=== PATIENT | female | born 1980 | race Caucasian/White ===

== ENCOUNTER → 2021-03-13 09:44 | Outpatient (CLI) | payer OTHER, SELFPAY ==
[2021-03-15 19:36] LABS: AFP Value 35.8 ng/mL (.); Gest Age on Col Date 16.4 weeks (.); Gestational Age Ultrasound (.); Insulin Dep Diabetes No (.); OSBR Risk 1IN 10000 (.); Results Report (.); Test Results *Screen Negative* (.)
== END ==
PROVIDERS: Referring Provider Obstetrics & Gynecology; Visit Provider Obstetrics & Gynecology
DX: O09.92 Supervision of high risk pregnancy, unspecified, second trimester (principal); Z3A.16 16 weeks gestation of pregnancy
CPT/HCPCS: 36415; 82105

== ENCOUNTER → 2021-04-05 15:40 | Outpatient (CLI) | payer OTHER, SELFPAY ==
--- NOTE | 2021-04-05 15:43 | DI.US.S_ITS ---
PROCEDURE: US OB >= 14 WEEKS FETUS INDICATIONS: 20 WEEK ANATOMY SCAN OUTSIDE/PRIOR DATING DATA: Last menstrual period (LMP): 11/18/2020. LMP-based estimated date of delivery (ANAND): 08/25/2021 . First dating scan (date and location): 04/05/2021 . Estimated date of delivery (ANAND) from first dating scan: 08/22/2021 . TECHNIQUE: Real-time scanning was performed of the fetus, with image documentation and biometric measurements. Endovaginal scanning: No COMPARISON: None. FINDINGS: General: A single living intrauterine gestation is present. Presentation: Transverse. Placenta: Placental position is anterior , without previa. Anterior uterine contraction versus fibroid measuring 2.6 x 2.1 x 1.6 cm. Amniotic fluid index: 14.1 cm, normal range is 5-24 cm. heart rate: 147 beats per minute. Maternal cervical canal: 5.0 cm long. Normal lower limit is 2.5 cm. biometrics: Biparietal diameter: 20 weeks Head circumference: 19 weeks 6 days Abdominal circumference: 20 weeks 3 days Femur length: 20 weeks Estimated gestational age from initial scan: not applicable. Composite gestational age from present scan: 20 weeks 1 day Estimated weight and percentile: 339 g, 74th percentile. Measurement variability for biometric dating: +/- 7 days from 14 weeks to 15 weeks 6 days gestation, +/- 10 days from 16 weeks to 21 weeks 6 days gestation, +/- 2 weeks from 22 weeks to 27 weeks 6 days gestation, +/- 3 weeks for 28 weeks gestation or later. weight reference: 4500 g or EFW >90/95% is considered macrosomia or large for gestational age. EFW <10% is small for gestational age. EFW 5% or less is considered intra-uterine growth restriction. Anatomic survey: Neuro: Ventricles are non-dilated at less than 10 mm. Cisterna magna is normal at 3-11 mm. Cerebellum is normal in size and morphology. Nuchal skin fold: Normal at less than 6 mm between 14-21 weeks gestational age. Face: Nose and lips, facial profile are normal. Spine: No evidence for spina bifida. Heart: 4-chambered heart is present, with normal ventricular outflow tracts. Diaphragm: Diaphragm is intact. Stomach: Left-sided stomach is present. Kidneys: No hydronephrosis. Normal is less than 5 mm in 2nd trimester, less than 7 mm in 3rd trimester. Cord: 3-vessel cord has orthotopic insertion. Bladder: Normal in size. Extremities: All 4 extremities identified. IMPRESSION: 1. 20 week 1 day single living IUP corresponding to ultrasound ANAND of 08/22/2021. 2. Normal anatomic survey. 3. Anterior myometrial contraction versus intramural fibroid measuring up to 2.6 cm. Dictated by: Dewayne CAICEDO Interpreted: Neil Oropeza MD on 04/05/2021 at 16:52 Transcribed by: LUCI on 04/05/2021 at 16:55 Approved by: Neil Oropeza M.D. on 04/05/2021 at 16:57
== END ==
PROVIDERS: Referring Provider Obstetrics & Gynecology; Visit Provider Obstetrics & Gynecology
DX: Z34.82 Encounter for supervision of other normal pregnancy, second trimester (principal); Z3A.20 20 weeks gestation of pregnancy
CPT/HCPCS: 76811

== ENCOUNTER → 2021-05-08 09:44 | Outpatient (CLI) | payer OTHER, SELFPAY ==
[2021-05-08 11:45] LABS: Hematocrit 33.5 % (36-46); Hemoglobin 11.4 g/dL (12.0-16.0)
[2021-05-08 12:02] LABS: GTT (PREG) 1 Hour PP 50gm Dose 120 mg/dL (76-139)
== END ==
PROVIDERS: Referring Provider Obstetrics & Gynecology; Visit Provider Obstetrics & Gynecology
DX: Z34.82 Encounter for supervision of other normal pregnancy, second trimester (principal); Z3A.25 25 weeks gestation of pregnancy
CPT/HCPCS: 36415; 82950; 85014; 85018

== ENCOUNTER → 2021-06-21 12:32 | Outpatient (CLI) | payer OTHER, SELFPAY ==
--- NOTE | 2021-06-21 12:33 | DI.US.S_ITS ---
PROCEDURE: US OB LIMITED INDICATIONS: GROWTH OUTSIDE/PRIOR DATING DATA: Last menstrual period (LMP): 11/18/2020. LMP-based estimated date of delivery (ANAND): 08/25/2021 . First dating scan (date and location): 04/05/2021 . Estimated date of delivery (ANAND) from first dating scan: 08/22/2021 . TECHNIQUE: Real-time scanning was performed of the fetus, with image documentation and biometric measurements. Endovaginal scanning: No COMPARISON: [facility], OB >= 14 WEEKS FETUS, 04/05/2021, 14:56. FINDINGS: General: A single living intrauterine gestation is present. Presentation: Vertex. Placenta: Placental position is anterior , without previa. Amniotic fluid index: 22.0 cm, normal range is 5-24 cm. heart rate: 130 beats per minute. Maternal cervical canal: 6.7 cm long. Normal lower limit is 2.5 cm. biometrics: Biparietal diameter: 32 weeks 3 days Head circumference: 32 weeks 5 days Abdominal circumference: 32 weeks 6 days Femur length: 31 weeks 3 days Estimated gestational age from initial scan: 31 weeks 1 day Composite gestational age from present scan: 32 weeks 3 days Estimated weight and percentile: 1956 g; 78th percentile Measurement variability for biometric dating: +/- 7 days from 14 weeks to 15 weeks 6 days gestation, +/- 10 days from 16 weeks to 21 weeks 6 days gestation, +/- 2 weeks from 22 weeks to 27 weeks 6 days gestation, +/- 3 weeks for 28 weeks gestation or later. weight reference: 4500 g or EFW >90/95% is considered macrosomia or large for gestational age. EFW <10% is small for gestational age. EFW 5% or less is considered intra-uterine growth restriction. Other: Not applicable. IMPRESSION: Single living IUP redemonstrated and interval growth is normal. Dictated by: Dewayne CAICEDO Interpreted: Shamir Flanagan MD on 06/21/2021 at 14:10 Transcribed by: HEMANTH on 06/21/2021 at 14:12 Approved by: Shamir Flanagan M.D. on 06/21/2021 at 17:30
== END ==
PROVIDERS: Referring Provider Obstetrics & Gynecology; Visit Provider Obstetrics & Gynecology
DX: O09.523 Supervision of elderly multigravida, third trimester (principal); Z3A.32 32 weeks gestation of pregnancy
CPT/HCPCS: 76815

== ENCOUNTER 2021-07-17 09:43 | Outpatient (CLI) | payer OTHER, SELFPAY ==
--- NOTE | 2021-07-17 10:40 | P.TNLD_ITS ---
Visit Information Visit Information Date of evaluation: 07/17/21 Primary OB Provider: Lawson Whitaker Reason for Evaluation: Yes non-stress test Comments/Additional reasons for admission: Advanced maternal age [facility] Medical History (Updated 06/21/21 @ 14:45 by Lawson Whitaker MD) Chicken pox (~1984) History of herpes genitalis (~2002) Family History Mother No problems noted. 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 ) substance use type: does not use during the past year weight has: remained stable well-balanced diet: daily or most days daily servings fruits/ve-4 caffeine: No Type(s) of exercise: normal ROM and activity ([place] lots of yard work, weeding. ) frequency: daily Evaluation Evaluation Baseline heart rate: 130 Variability: Moderate (11-25) monitor accelerations: Present Monitor Decelerations: Absent Category of Tracing: Reactive Status: Category l Comments: Reactive NST Diagnosis, Plan/Disposition Final Diagnosis (1) : Status: Acute (2) Advanced maternal age affecting , antepartum: Status: Acute Plan/Disposition Plan: Continue weekly NST's OB Disposition: home
== END 2021-07-17 10:45 | disposition home or self-care (01) ==
LOC: OB 07-23 03:45
PROVIDERS: Referring Provider Obstetrics & Gynecology; Visit Provider Obstetrics & Gynecology
DX: O09.523 Supervision of elderly multigravida, third trimester (principal); Z3A.34 34 weeks gestation of pregnancy
CPT/HCPCS: 59025; G0378; G0379

== ENCOUNTER 2021-07-24 10:01 | Outpatient (CLI) | payer OTHER, SELFPAY | END 2021-07-24 10:53 | disposition home or self-care (01) | LOC: OB 07-25 13:26 | PROVIDERS: Referring Provider Obstetrics & Gynecology; Visit Provider Obstetrics & Gynecology | DX: O09.523 Supervision of elderly multigravida, third trimester (principal); Z3A.35 35 weeks gestation of pregnancy | CPT/HCPCS: 59025; G0378; G0379 ==

== ENCOUNTER 2021-07-31 10:21 | Outpatient (CLI) | payer OTHER, SELFPAY | END 2021-07-31 11:00 | disposition home or self-care (01) | LOC: OB 08-02 14:03 | PROVIDERS: Referring Provider Obstetrics & Gynecology; Visit Provider Obstetrics & Gynecology | DX: O09.523 Supervision of elderly multigravida, third trimester (principal); Z3A.36 36 weeks gestation of pregnancy | CPT/HCPCS: 59025; 87653; G0378; G0379 ==

== ENCOUNTER → 2021-07-31 11:27 | Outpatient (CLI) | payer OTHER, SELFPAY ==
[2021-08-01 09:39] LABS: Strep Grp B PCR NEG for Grp B Strep
== END ==
PROVIDERS: Referring Provider Obstetrics & Gynecology; Visit Provider Obstetrics & Gynecology
DX: Z34.83 Encounter for supervision of other normal pregnancy, third trimester (principal); Z3A.36 36 weeks gestation of pregnancy
CPT/HCPCS: 87653

== ENCOUNTER 2021-08-07 09:39 | Outpatient (CLI) | payer OTHER, SELFPAY | END 2021-08-07 10:36 | disposition home or self-care (01) | LOC: LABOR 10:12 → OB 08-08 13:39 | PROVIDERS: Referring Provider Obstetrics & Gynecology; Visit Provider Obstetrics & Gynecology | DX: O09.523 Supervision of elderly multigravida, third trimester (principal); Z3A.37 37 weeks gestation of pregnancy | CPT/HCPCS: 59025; G0378; G0379 ==

== ENCOUNTER 2021-08-14 09:56 | Outpatient (CLI) | payer OTHER, SELFPAY | END 2021-08-14 10:35 | disposition home or self-care (01) | LOC: LABOR 10:42 → OB 08-19 09:17 | PROVIDERS: Referring Provider Obstetrics & Gynecology; Visit Provider Obstetrics & Gynecology | DX: O09.523 Supervision of elderly multigravida, third trimester (principal); O26.23 Pregnancy care for patient with recurrent pregnancy loss, third trimester; Z3A.38 38 weeks gestation of pregnancy | CPT/HCPCS: 59025; G0378; G0379 ==

== ENCOUNTER 2021-08-19 17:33 | Inpatient (IN) | payer OTHER, SELFPAY ==
[2021-08-19 19:23] LABS: COVID19 -Nasal RAPID Negative (Negative)
[2021-08-19] MEDS: miSOPROStoL 25 MCG TABLET 50 MCG PO (22:04)
[2021-08-19] MEDS: ACYCLOVIR 400 MG TABLET 800 MG PO (22:25)
[2021-08-19 22:26] LABS: Add Manual Diff / Slide Review NO; Basophils Absolute Auto 100 /uL (0-100); Basophils Percent Auto 0.8 % (0-2); Eosinophils Absolute Auto 0 /uL (0-450); Eosinophils Percent Auto 0.5 % (2-4); Hematocrit 37.5 % (36-46); Hemoglobin 12.6 g/dL (12.0-16.0); Lymphocytes Absolute Auto 2400 /uL (1100-4500); Lymphocytes Percent Auto 24.1 % (25-40); Mean Corpuscular HGB Conc 33.7 % (30-36); Mean Corpuscular Hemoglobin 31.1 PG (26-34); Mean Corpuscular Volume 92.3 fL (80-100); Monocytes Absolute Auto 700 /uL (0-900); Monocytes Percent Auto 7.3 % (3-14); Neutrophils Absolute Auto 6700 /uL (1500-7000); Neutrophils Percent Auto 67.3 % (50-75); Platelet Count 150 X10^3/uL (150-400); Red Blood Cell Count 4.06 X10^6/uL (4.0-5.2); Red Cell Distribution Width 14.4 % (11.6-14.8); White Blood Cell Count 9.9 X10^3/uL (4.5-11.0)
[2021-08-19 23:44] VITALS: BP 124/71
[2021-08-20] MEDS: miSOPROStoL 25 MCG TABLET 50 MCG PO ×2 (02:09→02:40)
[2021-08-20] MEDS: LACTATED RINGERS 1,000 ML 100 ML IV ×2 (07:57→09:00)
--- NOTE | 2021-08-20 07:59 | PM.OBHP.1 ---
OB HPI Date/Time Date of admission: 08/19/21 Date Patient Seen: 08/20/21 Time Patient Seen: 07:59 History of Present Condition Chief complaint: L&D : 4 Para: 1 Estimated Date of Delivery: 08/25/21 Estimated Gestational Age (weeks): 39+2 Narrative: Jailyn Chacko is a 41 year admitted now at 39+ 2 weeks gestational age for induction of labor due to advanced maternal age. course has been unremarkable. She has a remote history of HSV but no outbreaks currently and she's been on acyclovir prophylaxis since 36 weeks EGA. Indications Indication for induction OB: other (Advanced maternal age) History of Present care: good care Dating criteria: LMP confirmed by 1st trimester US Obstetrical complications: none Medical complications: none Preadmission Labs Blood type: A (+) positive -: Antibody screen: negative, GBS status: negative, HBsAG: negative, HIV: negative and RPR/VDLR: negative -: Chlamydia screen: not detected and Gonorrhea screen: not detected -: Rubella: immune and Varicella: immune HCT: 37.5 HCAB: negative PAP: Normal Cell-free DNA: Negative 1 hr GTT: 120 Prior (ies) History: x 1 Evaluation Evaluation Baseline heart rate: 130 Variability: Moderate (11-25) monitor accelerations: Present Monitor Decelerations: Early and Episodic Contraction Frequency (minutes): 3 Uterine Contraction Intensity: Moderate Category of Tracing: Reactive Status: Category l Dilation (cm): 2 Effacement (%): 90 Dilation: 1-2 cm Effacement: >/=80% station: -1 Position of cervix: posterior Consistency: soft Waddell score: 8 Comments: SROM clear fluid PFSH Medical History Chicken pox (~1984) History of herpes genitalis (~2002) Family History Mother No problems noted. 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 ) substance use type: does not use during the past year weight has: remained stable well-balanced diet: daily or most days daily servings fruits/ve-4 caffeine: No Type(s) of exercise: normal ROM and activity ([place], lots of yard work, weeding. ) frequency: daily Meds Home Medications and Allergies Home Medications Medication Instructions Recorded Confirmed Type prenat.vits,shaun,xuy-fvnh-tizsw 1 tab PO DAILY 02/08/21 08/19/21 History Double Electric Breast Pump 1 ea TOPICAL .prn #1 ea 03/27/21 08/19/21 Rx ascorbic acid (vitamin C) 500 mg 500 mg PO DAILY #30 tab 05/09/21 08/19/21 Rx tablet ferrous sulfate 325 mg (65 mg 325 mg PO DAILY #30 tab 05/09/21 08/19/21 Rx iron) tablet acyclovir 800 mg tablet 800 mg PO BID 60 Days #60 tab 08/21/21 08/19/21 Rx ibuprofen 600 mg tablet 600 mg PO Q6HR PRN 60 Days tab 08/21/21 Rx Allergies Allergy/AdvReac Type Severity Reaction Status Date / Time No Known Drug Allergies Allergy Verified 02/13/21 09:26 Review of Systems Review of Systems Narrative: Problem-specific ROS positives included in HPI OB Exam HENMT Head: normal to inspection Mouth: oral mucosae normal Eyes General: appearance normal, both eyes and all related structures Resp Effort & Inspection: normal respiratory effort and able to speak in complete sentences Auscultation: clear to auscultation bilaterally Cardio Rate: regular rate Rhythm: regular rhythm Heart Sounds: S1 normal, S2 normal and no murmurs Extremities Lower extremity: Yes normal to inspection Sona's Sign: Left GI Inspection: normal to inspection and other (Gravid, vertex, EFW 7.5#) Palpation: soft External Female Exam: Yes normal external appearance and No lesion Uterus Location (Fundal Height): 36 Presentation: vertex Estimated Weight (lbs): 7 Amniotic Fluid: clear Objective Labs Result Diagrams: 08/21/21 06:50 Labs: Laboratory Results - last 24 hr 08/19/21 08/19/21 08/19/21 18:40 21:20 21:20 WBC 9.9 RBC 4.06 Hgb 12.6 Hct 37.5 MCV 92.3 MCH 31.1 MCHC 33.7 RDW 14.4 Plt Count 150 Neut % (Auto) 67.3 Lymph % (Auto) 24.1 L [place] % (Auto) 7.3 Eos % (Auto) 0.5 L Baso % (Auto) 0.8 Neut # (Auto) 6700 Lymph # (Auto) 2400 [place] # (Auto) 700 Eos # (Auto) 0 Baso # (Auto) 100 SARS-CoV-2 (PCR) Negative Blood Type A Positive Antibody Screen Negative Assessment and Plan Assessment and Plan Assessment and Plan narrative: ASSESSMENT Intrauterine gestation, Pavon, vertex, 39+ 2 weeks gestation History of genital herpes, on prophylaxis, no lesions currently Borderline platelet count PLAN Admit for cervical ripening/induction Continue acyclovir HSV prophylaxis Pitocin augmentation as indicated OK for CARLY for pain relief in labor when desired Time Spent with Patient Total time spent with greater than 50% in coordination of care (as documented) at patient's floor/unit and/or counseling patient:: 15-24 minutes
--- NOTE | 2021-08-20 10:20 | P.PCNOB_ITS ---
Events: Other (Advanced maternal age) Labor & Delivery Delivery date: 08/20/21 Intrapartal Events: Deceleration (Deep variables, second stage) Cervical ripening method: per misoprostal protocol Induction method: none Delivery monitor: external FHT and external uterine Route of delivery: and vacuum extraction Indication for instrumentation: nonreassuring FHR tracing Episiotomy description: None L&D Laceration Description: Perineal - 1st Degree and Vaginal - 1st Degree (Bilateral) Delivery repair: chromic Estimated blood loss (mL): 200 Anesthesia Type: Epidural Complications: None Narrative: Patient underwent cervical ripening with oral Cytotec beginning on the evening of 08/19/2021 or and progressed into spontaneous labor on the morning of 08/20/2021. An epidural was placed. Following spontaneous rupture membranes demonstrating clear fluid, the patient advanced rapidly into the 2nd stage and experience the onset of deep variables down to a vilma of 60 beats per minute. Due to repetitive decelerations, the decision was made to expedite delivery with vacuum extraction applied to the vertex at +2 station, ANDREW position. Single pull with suction never exceeding 500 mmHg was required to bring the vertex down to the perineum and the patient pushed spontaneously over intact perineum delivering a viable female infant Apgars of 8/9 and a weight of 3381 g (7 lb 7.2 oz.). A tight nuchal/shoulder cord was noted and reduced after delivery of the body. No shoulder dystocia was encountered and skin to skin contact was initiated immediately. The infant was vigorous and delayed cord clamping or was performed. Once cut, 3 vessels were noted in the cord and cord blood sample was obtained for routine studies. The placenta was then delivered with gentle cord traction, was inspected, and found to be intact. IV Pitocin infusion was initiated and bleeding was minimal with a total QBL of approximately 200 cc. There were superficial labial lacerations bilaterally and a 1st degree midline perineal abrasion was noted. All 3 required closure with 3-0 chromic catgut suture in the usual fashion. Sponge needle counts were then confirmed correct and the delivery procedure concluded with the patient and baby doing well. [place] Baby 1: gender: Female Presentation: vertex Position: Left Occiput Anterior Placenta delivery description: Spontaneous Cord Vessel Description: 3 Vessels, Nuchal Cord and Reduced score (1 min): 8 score (5 min): 9 weight: 7 lb 7.261 oz Plan for aftercare: Routine care
[2021-08-20] MEDS: FERROUS SULFATE 325 MG TABLET PO (10:48)
[2021-08-20] MEDS: ACYCLOVIR 400 MG TABLET 800 MG PO (10:48)
[2021-08-20 17:39] VITALS: TEMP 37.4
[2021-08-20] MEDS: IBUPROFEN 600 MG TABLET PO ×2 (17:39→23:54)
[2021-08-20] MEDS: ACETAMINOPHEN 325 MG TABLET 650 MG PO (20:18)
[2021-08-21] MEDS: ACETAMINOPHEN 325 MG TABLET 650 MG PO ×2 (02:52→10:20)
[2021-08-21] MEDS: IBUPROFEN 600 MG TABLET PO (05:50)
[2021-08-21 07:24] LABS: Hematocrit 38.4 % (36-46); Hemoglobin 12.8 g/dL (12.0-16.0)
--- NOTE | 2021-08-21 09:54 | P.DS_ITS ---
Discharge Providers Provider Date of admission: 08/19/21 17:33 Discharge Date: 08/21/21 Consults: 08/19/21 18:14 Consult to Anesthesiology Urgent Comment: Consulting Provider: Lawson Whitaker Reason for consultation: CARLY placement in labor Has provider been notified: No 08/21/21 10:14 Consult to End Stapler Routine Comment: Discharge provider: Lawson Whitaker MD Summary Hospital Course Date Patient Seen: 08/21/21 Time Patient Seen: 09:55 Diagnoses: Intrauterine , hernandez, verteex, delivered, term Advanced maternal age Hospital Course: Jailyn was admitted to the [facility] on the evening of 08/19/2021 for cervical ripening. She received oral Cytotec, 2 doses of 50 mcg which precipitated spontaneous labor. On the morning of 08/20/2021 a or laboring epidural was placed and shortly thereafter the patient experienced spontaneous rupture membranes. She quickly advanced into the 2nd stage of labor and delivered with vacuum assist due to deep variables in the 2nd stage, a viable female infant with Apgars of 8/9 and a weight of 3381 g (7 lb 7.26 oz). She sustained superficial labial and perineal abrasions which required closure with 3-0 chromic catgut suture. Following delivery the patient has done extremely well as has her little girl (Estelita) and she will be discharged on the 1st post day to home following instructions regarding precautionary symptoms, limitations of activity, medications, plans for follow-up in 6 weeks. No contraception is required at this point and medications will include or acyclovir 800 mg p.o. b.i.d. for 6 weeks is HSV prophylaxis due to a remote history of HSV infection. In addition she will be using OTC Tylenol and/or ibuprofen as needed for pain relief. Peripartum Data Infant Delivery Method: Assisted Delivery (Vacuum assist to advance vertex to perineum for ) Laceration Description: Perineal - 1st Degree and Labial (1st degree, bialteral) Episiotomy description: None Procedures: CARLY in labor complications: none [place] 1: Gender: Female Status at Discharge Cognitive/behavioral status at discharge: oriented Functional status at discharge: independent ambulation Overall status at discharge: patient is not back to baseline Time Spent with Patient Time attestation: Total time spent providing and/or coordinating discharge services: Time spent: Less than 30 minutes Objective Labs Result Diagrams: 08/21/21 06:50 Labs: Laboratory Results - last 24 hr 08/21/21 06:50 Hgb 12.8 Hct 38.4 Discharge Plan Discharge Plan Patient Disposition: Home Provider Discharge Comment: Please review the written instructions she received at the time of discharge. Your follow-up appointment will be scheduled for 6 weeks from the time of your delivery and I look forward to seeing you then. If in the meanwhile however you have any issues, questions, or concerns, please feel free to contact me via the patient portal or the office phone number. Discharge orders & Medications Prescriptions: New ibuprofen 600 mg Tablet 600 mg PO Q6HR PRN (Reason: Pain, Mild (1-3)) 60 Days 0RF Continued Double Electric Breast Pump 1 ea topical .prn Qty: 1 0RF Rx Instructions: Pump and supplies ferrous sulfate 325 mg (65 mg iron) tablet 325 mg PO DAILY Qty: 30 6RF Rx Instructions: Take 1 tablet daily with a 500 mg tablet of vitamin C ascorbic acid (vitamin C) 500 mg tablet 500 mg PO DAILY Qty: 30 6RF Rx Instructions: Take 1 tab daily with iron supplement prenat.vits,shaun,[id number]-zrwdk Tablet 1 tab PO DAILY 0RF acyclovir 800 mg tablet 800 mg PO BID 60 Days Qty: 60 2RF Rx Instructions: Start medication daily no later than 36 weeks. Follow up/Referrals: Lawson Whitaker MD [Physician] - 6 Weeks (August 26Thursday at 11am for an appointment at the clinic at [facility] October 02, at 10am, with Dr Whitaker for a 6 week post appointment) Discharge Health Status Multidrug resistant organism: No MDRO Diet/Activity/Treatments Diet: Diet as Tolerated Activity: As tolerated Skin/Wound/Dressing Care Report to your healthcare provider any signs of infection, such as:: chills, fever, increased pain, unusual drainage and unusual redness Dressing: N/A Visit Report/Discharge Packet Instructions: DI for Labor and Delivery, Vaginal , DI for and Nipple Soreness Stand Alone Forms: Discharge: Care
[2021-08-21 09:56] VITALS: BP 115/76; PULSE 79; RESP 16; TEMP 36.6
[2021-08-21] MEDS: DOCUSATE 100 MG CAPSULE PO (10:43)
== END 2021-08-21 11:05 | disposition home or self-care (01) | DRG 807 ==
PROVIDERS: Admitting Provider Obstetrics & Gynecology; Referring Provider Obstetrics & Gynecology; Visit Provider Obstetrics & Gynecology
DX: O98.32 Other infections with a predominantly sexual mode of transmission complicating childbirth (principal); Z37.0 Single live birth; A60.00 Herpesviral infection of urogenital system, unspecified; Z3A.39 39 weeks gestation of pregnancy; O76 Abnormality in fetal heart rate and rhythm complicating labor and delivery; O70.0 First degree perineal laceration during delivery; O69.1XX0 Labor and delivery complicated by cord around neck, with compression, not applicable or unspecified
CPT/HCPCS: 01967; 36415; 59050; 59200; 59400; 85014; 85018; 85025; 86850; 86900; 86901; 87635; C9803; G0379

== ENCOUNTER → 2023-09-12 09:25 | Outpatient (CLI) | payer OTHER, SELFPAY ==
--- NOTE | 2023-09-12 09:27 | DI.MG.S_ITS ---
BILATERAL DIGITAL SCREENING MAMMOGRAM 3D/2D WITH CAD: 09/12/2023 CLINICAL: Routine screening. Baseline exam. No prior exams were available for comparison. Both breasts are extremely dense, which lowers the sensitivity of mammography (category d />75% glandular tissue). Current study was also evaluated with a Computer Aided Detection (CAD) system. No significant masses, calcifications, or other findings are seen in either breast. IMPRESSION: NEGATIVE There is no mammographic evidence of malignancy. A 1 year screening mammogram is recommended. Based on Tyrer-Cuzick model (a risk assessment model), the patient's lifetime risk is 20.2% and her 10 year risk is 4.0%. If a patient has an elevated risk, a more comprehensive evaluation should be considered and/or a referral to a genetic counselor. The [place] [employer], [place] [employer], and NCCN Guidelines advise the consideration of Breast MRI as an adjunct to screening mammography in patients whose Lifetime risk to develop breast cancer is 20% or higher. This exam was interpreted at Station ID: [id number]. NOTE: For mammograms, a report in lay terms will be sent to the patient. Approximately 15% of breast malignancies will not be visualized mammographically. In the management of a palpable breast mass, a negative mammogram must not discourage biopsy of a clinically suspicious lesion. Electronically Signed By: Christofer day/adia:09/14/2023 07:59:00 letter sent: Normal Exam ACR BI-RADS Category 1: Negative [id number]
== END ==
LOC: MAMMO 09:26
PROVIDERS: PCP Student in an Organized Health Care Education/Training Program; Referring Provider Student in an Organized Health Care Education/Training Program; Visit Provider Student in an Organized Health Care Education/Training Program
DX: Z12.31 Encounter for screening mammogram for malignant neoplasm of breast (principal); R92.343 Mammographic extreme density, bilateral breasts
CPT/HCPCS: 77063; 77067